=== PATIENT | female | born 1945 | race Caucasian/White ===

== ENCOUNTER 2024-05-05 13:22 | Emergency (ER) | payer MEDICARE, SELFPAY ==
[2024-05-05 13:34] VITALS: BP 154/77; PULSE 83; RESP 18; TEMP 36.4; O2SAT 98
[2024-05-05] MEDS: Lidocaine/Epinephri/Tetracaine Topical Gel 3 ML TP (14:23)
[2024-05-05] MEDS: Lidocaine 1% Pres-Free W/EPI 1/200,000 30 ML VIAL IJ (14:23)
--- NOTE | 2024-05-05 14:37 | ED.GENADUL_ITS ---
Discharge Plan Disposition Patient Disposition: Home Condition: Stable Discharge Details Clinical Impression: Laceration of left forearm, Left thumb sprain Primary Care Provider: Angeline,Local ED Provider: Brian Haddad Discharge Instructions Instructions: Preventing falls in adults, Laceration Repair With Stitches ED, Thumb Sprain ED Additional Instructions: Please keep wound dressing intact. Change sterile dressing daily and monitor for signs of infection. See your doctor, urgent care, or return to the emergency department for suture removal in 12 to 14 days. Keep thumb splint in place for the next 1 week. If pain persist, follow-up with your doctor for additional outpatient diagnostic testing. Return to the emergency department immediately for any worsening or new concerning symptoms. HPI General Mode of arrival: ambulatory . Date/Time Provider Initiated Documentation: 05/05/24 14:11 . Limitations to Documentation: no limitations . Information obtained by: patient . HPI Narrative: 78-year-old female presents with chief complaint of arm injury. Patient notes she tripped and fell and landed on her left arm. She sustained laceration to her forearm and injured the base of her thumb. This occurred just prior to arrival. Pain is moderate in her thumb and worse with movement. Laceration is deep. No other injury sustained. She did not hit her head or lose consciousness. Related Data Allergies Allergy/AdvReac Type Severity Reaction Status Date / Time codeine AdvReac Intermediate Itching Verified 05/05/24 13:36 General Stated Complaint: Fall/Non TraumaCriteria JUDY: 4 Review of Systems Musculoskeletal Musculoskeletal: Reports as per HPI Integumentary/Breasts Skin/Breast: Reports as per HPI Exam Const General: cooperative and no acute distress HENAZ Head: normocephalic and atraumatic Mouth: moist mucous membranes Resp Auscultation: clear to auscultation bilaterally, no rales, no rhonchi and no wheezes Cardio Rate: regular rate and not tachycardic Rhythm: regular rhythm Back/Spine/Pelvis Cervical Spine: No cervical spinal tenderness Thoracic/Lumbar Spine: No thoracic spinal tenderness and No lumbar spinal tenderness Skin General skin exam: no rashes or lesions noted Neuro General: patient alert, patient awake and tone normal Extrem Left upper extremity: elbow/forearm Details: laceration (6cm full thickness into adipose), wrist Details: tenderness Location: of the distal radius and hand Details: tenderness Location: of the thumb Location: at the thenar eminence Other: Patient notes some paresthesias to distal fourth and fifth digits Course Vital Signs Vital signs: Vital Signs Temperature 36.4 C L 05/05/24 13:34 Pulse 83 05/05/24 13:34 Respiratory Rate 18 05/05/24 13:34 Blood Pressure 154/77 H 05/05/24 13:34 Pulse Oximetry 98 05/05/24 13:34 Temperature 36.4 C L 05/05/24 13:34 Temperature Source Temporal Artery Scan 05/05/24 13:34 Pulse 83 05/05/24 13:34 Respiratory Rate 18 05/05/24 13:34 Respiratory Effort Normal, Non-Labored 05/05/24 14:23 Blood Pressure 154/77 H 05/05/24 13:34 Blood Pressure Position Sitting 05/05/24 13:34 Pulse Oximetry 98 05/05/24 13:34 Oxygen Delivery Method Room Air 05/05/24 13:34 Oxygen Flow Rate 0 05/05/24 13:34 Procedures Laceration Laceration 1: Site: upper extremity Side (If applicable): left Size (cm): 6 Description: linear and irregular Local anesthetic: Lidocaine 1% and with Epi Amount of anesthesia used (mL): 10 Pre-repair: wound explored and irrigated extensively Skin layer closed with: nylon Size (cm): 3-0 Number of sutures: 6 Technique: simple, interrupted Medical Decision Making 78-year-old female here today after fall with injury to her left arm. Patient sustained injury to left thumb and wrist and has ecchymosis and tenderness over her thenar eminence and distal radius. Concern for fracture versus sprain. Patient also has significant laceration mid forearm. No forearm or elbow bony tenderness. Tetanus is not up-to-date. I will give Boostrix. X-ray of the left wrist with navicular views and left hand interpreted by radiology: Postsurgical and degenerative changes. No acute abnormality. Primary closure was performed of the wound after revision. Sterile dressing applied. Thumb spica splint applied for thumb sprain. Quality:SDOH Health Related Social Needs: No Data to Display PFSH All Active Problems (Updated 05/05/24 @ 16:00 by Brian Haddad MD) Left thumb sprain (Acute) Laceration of left forearm (Acute) Social History Smoking/Tobacco Use Status: Never Smoking risk assessment performed?: Yes Alcohol Intake: current Alcohol Intake frequency: holidays/special occasions only Housing: house Do you feel safe at home: Yes Do you feel safe in your relationship?: Yes
--- NOTE | 2024-05-05 14:45 | DI.RAD_ITS ---
Exam(s) XR WRIST LT COMP NAVICULAR XR HAND LT COMPLETE EXAM: XR WRIST LT COMP NAVICULAR CLINICAL HISTORY: fall, pain base thumb and radial wrist. TECHNIQUE: 2D digital imaging was performed. Three views. COMPARISON: CR XR HAND LT COMPLETE from 05/05/2024 FINDINGS: BONES: No acute fracture is present. No bony destructive lesion is seen. Postsurgical changes with pr ior resection of the trapezium a portion of the trapezoid. Chronic appearing ventral bony density in this location. JOINTS: The carpal bones are normally aligned. Degenerative changes at the interphalangeal joints a nd intercarpal articulations. SOFT TISSUE: Normal. IMPRESSION: Postsurgical and degenerative changes. No acute abnormality. DATA REPOSITORY: RADIATION DOSE DELIVERED:
[2024-05-05 16:33] VITALS: BP 150/77; PULSE 81; RESP 14; TEMP 36.2; O2SAT 98
== END 2024-05-05 16:34 | disposition home or self-care (01) ==
PROVIDERS: Emergency Provider Student in an Organized Health Care Education/Training Program
DX: S51.812A Laceration without foreign body of left forearm, initial encounter (principal); S63.602A Unspecified sprain of left thumb, initial encounter; Z23 Encounter for immunization; W01.0XXA Fall on same level from slipping, tripping and stumbling without subsequent striking against object, initial encounter; Y93.01 Activity, walking, marching and hiking
CPT/HCPCS: 12002; 29125; 90471; 90715; 99283; 73110; 73130; J2004